=== PATIENT | female | born 1995 | race African-American/Black ===

== ENCOUNTER 2022-08-08 06:25 | Emergency (ER) | payer MEDICAID ==
[~2022-08-08] VITALS: Ht 165.1 cm; Wt 46.8 kg
--- NOTE | 2022-08-08 06:35 | NUR ---
Dr Rees at bedside MSE in progress
[2022-08-08] MEDS ORDERED: CEFTRIAXONE 500 MG VIAL IM ONE (07:30)
[2022-08-08] MEDS ORDERED: DOXYCYCLINE HYCLATE 100 MG TABLET PO ONE (07:30)
[2022-08-08] MEDS ORDERED: IV NORMAL SALINE 1000 ML BAG IV ONE (07:30)
[2022-08-08] MEDS ORDERED: DOXYCYCLINE HYCLATE 100 MG TABLET ONE (07:38)
[2022-08-08] MEDS ORDERED: CEFTRIAXONE 500 MG VIAL ONE (07:38)
--- NOTE | 2022-08-08 07:58 | NUR ---
Female skid worker accompanied female patient for ( Dr Rees).
[2022-08-08 08:05] LABS: *URINE HCG, QUAL NEG (NEGATIVE)
[2022-08-08 08:07] LABS: *BILIRUBIN,URIN NEGATIVE (NEGATIVE); *BLOOD, URINE NEGATIVE (NEGATIVE); *CLARITY,URINE CLEAR (CLEAR); *COLOR,URINE YELLOW (YELLOW); *KETONES,URINE NEGATIVE (NEGATIVE); *UROBILINOGEN,URINE 0.2 E.U./dl (NORMAL); LEUKOCYTE ESTERASE ,URINE NEGATIVE (NEGATIVE); NITRITE, URINE NEGATIVE (NEGATIVE); UGLUCOSE NEGATIVE (NEGATIVE)
[2022-08-08 08:34] LABS: HEMATOCRIT 29.7 % (31.2-41.9); MEAN CORPUSCULAR VOLUME 69.9 fL (75.5-95.3); PLATELET COUNT (AUTO) 191 K/uL (179-408)
[2022-08-08 08:48] LABS: BILIRUBIN,DIRECT 0.1 mg/dL (0.0-0.2); BILIRUBIN,TOTAL 0.2 mg/dL (0.2-1.0); CREATININE 0.7 mg/dL (0.6-1.3); POTASSIUM 3.7 mmol/L (3.5-5.1); TOTAL PROTEIN, SERUM 7.3 g/dL (6.4-8.2)
[2022-08-08] MEDS ORDERED: METR-147 PO (10:42)
[2022-08-08] MEDS ORDERED: DOXY100C5 PO (10:42)
--- NOTE | 2022-08-08 10:51 | NUR ---
PT WAS D/C'd TO HOME. D/C INSTRUCTIONS GIVEN TO THE PT BY DR MARIEE.
[2022-08-08 10:52] VITALS: BP 123/68
[2022-08-10 00:06] LABS: *TRIC.VAG. NAA Negative (Negative)
[2022-08-10 21:06] LABS: *GC NAA Negative (Negative)
== END 2022-08-08 10:53 | disposition home or self-care (01) ==
LOC: ER 06:34
DX: N73.9 Female pelvic inflammatory disease, unspecified (principal); D50.9 Iron deficiency anemia, unspecified; J45.909 Unspecified asthma, uncomplicated; F17.200 Nicotine dependence, unspecified, uncomplicated; Z88.6 Allergy status to analgesic agent
CPT/HCPCS: 99285; 74176; 96360; 76856; 86592; 80076; 80048; 81003; 87806; 84703; 83690; 85025; 85730; 87210; 36415; 96372; 87491; J0696; J7040; A4663